=== PATIENT | female | born 1985 | race Caucasian/White ===

== ENCOUNTER → 2020-08-04 11:34 | Outpatient (BNVA) | payer OTHER, SELFPAY | PROVIDERS: Visit Provider Nurse Practitioner Family | DX: Z20.828 Contact with and (suspected) exposure to other viral communicable diseases (principal); R43.0 Anosmia | CPT/HCPCS: 87635 ==

== ENCOUNTER → 2025-07-30 15:30 | Outpatient (BNVA) | payer BC, SELFPAY | PROVIDERS: Visit Provider Nurse Practitioner Family | DX: R05.9 Cough, unspecified (principal) | CPT/HCPCS: 71046 ==